=== PATIENT | female | born 1985 ===

== ENCOUNTER 2019-04-28 03:40 | Inpatient (IN) | payer OTHER ==
[2019-04-28] MEDS ORDERED: BUTORPHANOL TARTRATE 1 MG/ML VIAL IVPB ONE (04:00)
[2019-04-28] MEDS ORDERED: DEXTROSE 5%-LACTATED RINGERS 1,000 ML IV SCH (04:00)
[2019-04-28] MEDS ORDERED: PROMETHAZINE HCL 25 MG/1 ML VIAL IVPB ONE (04:00)
[2019-04-28] MEDS ORDERED: AMPICILLIN SODIUM 2 GM VIAL ONE (04:23)
[2019-04-28] MEDS ORDERED: AMPICILLIN - 2 GM in SODIUM CHLORIDE 100 ML IVPB ONE (04:30)
[2019-04-28 04:40] LABS: BASO % 0.1 % (0-2.0); EOS % 0.9 % (0-4.5); HEMATOCRIT 38.5 % (32.4-45.2); HEMOGLOBIN 12.8 GM/dL (10.7-15.3); LYMPH % 21.9 % (8-40); MCH 29.4 pg (25.7-33.7); MCHC 33.1 g/dl (32.0-36.0); MEAN PLT VOLUME 9.3 fl (7.5-11.1); MONO % 8.4 % (3.8-10.2); NEUT % 68.7 % (42.8-82.8); PLATELET COUNT 171 K/MM3 (134-434); RBC 4.33 M/mm3 (3.60-5.2); WHITE BLOOD COUNT 9.9 K/mm3 (4.0-10.0)
[2019-04-28 04:46] LABS: INR 0.89 (0.83-1.09); PROTHROMBIN TIME (PATIENT) 10.5 SEC (9.7-13.0)
[2019-04-28 04:56] LABS: BLOOD UREA NITROGEN 12.6 mg/dL (7-18); CREATININE 0.6 mg/dL (0.55-1.3)
[2019-04-28 05:06] VITALS: BMI 30.7
--- NOTE | 2019-04-28 07:43 | HP ---
Past Medical History - Primary Care Physician PCP:: Theo Arnett - Admission Chief Complaint: 38 weeks, PROM History of Present Illness: 34 yo f g [id number] 38 weeks c/o ROM since 330 am today , no pain, no bleeding, no fever. cx closed , vx -3 mr, clear fluid, nitrazine positive, FHR cat 1, no contraction History Source: Patient Limitations to Obtaining History: No Limitations - Past Medical History ...: 1 ...Para: 0 ...LMP: 08/01/18 ... Weeks Gestation by Dates: 38.4 ...EDC by Dates: 05/08/19 ...EDC by Sono: 05/08/19 - Past Surgical History Hx Myomectomy: No Hx Transabdominal Cerclage: No - Smoking History Smoking history: Never smoked Have you smoked in the past 12 months: No - Alcohol/Substance Use Hx Alcohol Use: No - Social History Usual Living Arrangement: Yes: With Spouse History of Recent Travel: No Home Medications - Allergies Allergies/Adverse Reactions: Allergies Allergy/AdvReac Type Severity Reaction Status Date / Time colloidal oatmeal Allergy Unknown Verified 04/28/19 04:26 [From Aveeno] dimethicone [From Aveeno] Allergy Unknown Verified 04/28/19 04:26 menthol [From Aveeno] Allergy Unknown Verified 04/28/19 04:26 soap [From Aveeno] Allergy Unknown Verified 04/28/19 04:26 aveno oatmeal lotion Allergy Mild Uncoded 04/28/19 04:26 - Home Medications Home Medications: Ambulatory Orders Pnv No.95/Ferrous Fum/Folic AC [ Vitamin Tablet] 1 tab PO DAILY Review of Systems - Review of Systems Constitutional: reports: No Symptoms Eyes: reports: No Symptoms HENT: reports: No Symptoms Neck: reports: No Symptoms Cardiovascular: reports: No Symptoms Respiratory: reports: No Symptoms Gastrointestinal: reports: No Symptoms Genitourinary: reports: No Symptoms Breasts: reports: No Symptoms Reported Musculoskeletal: reports: No Symptoms Integumentary: reports: No Symptoms Neurological: reports: No Symptoms Endocrine: reports: No Symptoms Hematology/Lymphatic: reports: No Symptoms Psychiatric: reports: No Symptoms Physical Exam - Maternity Vital Signs: Vital Signs Temperature 97.9 F 04/28/19 07:00 Pulse Rate 89 04/28/19 07:00 Respiratory Rate 20 04/28/19 07:00 Blood Pressure 118/76 04/28/19 07:00 O2 Sat by Pulse Oximetry (%) Constitutional: Yes: Well Nourished, No Distress, Calm Eyes: Yes: WNL, Conjunctiva Clear, EOM Intact HENT: Yes: WNL, Atraumatic, Normocephalic Neck: Yes: WNL, Supple, Trachea Midline Cardiovascular: Yes: WNL, Regular Rate and Rhythm Breast(s): Yes: WNL - Abdominal Exam/OB Fundal Height: 40 Number of Fetuses: Single Presentation: Vertex Contractions: No Intensity: Unaware Monitor Mode: External Heart Rate Location: [facility] Category: I Accelerations: Non-Uniform Decelerations: None - Vaginal Exam/OB Vaginal Bleediing: No Speculum Exam: No Dilatation (cm): closed Effacement (%): o Amniotic Membrane Status: Ruptured Nitrazine Test: Positive Amniotic Fluid: Yes: Clear Presentation: Vertex/Position Station: -3 - Physical Exam Musculoskeletal: Yes: WNL Extremities: Yes: WNL Edema: Yes Edema: LLE: 1+, RLE: 1+ Integumentary: Yes: WNL ...Motor Strength: WNL Psychiatric: Yes: WNL - Labs Lab Results: CBC, BMP 04/28/19 04:20 04/28/19 04:20 Hemorrhage Risk Assessment - Risk Factors Medium Risk Factors: Yes: None High Risk Factors: Yes: None Risk Score: 1 Risk Level: Medium Risk Problem List - Problems (1) with 38 completed weeks gestation Code(s): Z3A.38 - 38 WEEKS GESTATION OF (2) PROM (premature rupture of membranes) Code(s): O42.90 - FARHAN ROM, 7TH0 BETW RUPT & ONST LABR, UNSP WEEKS OF GEST Qualifiers: PROM gestational age: -third trimester (3) GBS (group B Streptococcus carrier), +RV culture, currently Code(s): O99.820 - STREPTOCOCCUS B CARRIER STATE COMPLICATING Assessment/Plan admit FHM GBS prophylaxes induction 0f labor discussed cervidil risks discussed advised cervidil induction
[2019-04-28] MEDS ORDERED: AMPICILLIN SODIUM 1 GM VIAL ONE ×4 (07:56→21:26)
[2019-04-28] MEDS: AMPICILLIN - 1 GM in SODIUM CHLORIDE 100 ML IVPB SCH ×4 (08:18→21:00)
[2019-04-28 08:45] LABS: POC NITRAZINE POS
[2019-04-28] MEDS ORDERED: DINOPROSTONE 10 MG VAGINAL SUPPOSITORY VG ONE (09:30)
[2019-04-28] MEDS ORDERED: FENTANYL/BUPIVACAINE/NS/PF - PCEA - 50 ML DISP.SYRIN EP ONE ×3 (13:55→23:13)
--- NOTE | 2019-04-28 14:14 | PN ---
Progress Note (short form) - Note Progress Note: cx 2 cm 70 vx -3 mr, fhr cat 1, regular contraction, uncomfortable, wants epidural Problem List - Problems (1) with 38 completed weeks gestation Code(s): Z3A.38 - 38 WEEKS GESTATION OF (2) PROM (premature rupture of membranes) Code(s): O42.90 - FARHAN ROM, 7TH0 BETW RUPT & ONST LABR, UNSP WEEKS OF GEST Qualifiers: PROM gestational age: -third trimester (3) GBS (group B Streptococcus carrier), +RV culture, currently Code(s): O99.820 - STREPTOCOCCUS B CARRIER STATE COMPLICATING
[2019-04-28] MEDS ORDERED: ELECTROLYTE-148 SOLN 1,000 ML IV SCH (14:30)
[2019-04-28] MEDS ORDERED: SODIUM CHLORIDE 100 ML IVPB ONE (15:15)
[2019-04-28] MEDS ORDERED: NALOXONE HCL 0.4 MG/ML VIAL IVPUSH PRN (15:39)
[2019-04-28] MEDS ORDERED: FENTANYL/BUPIVACAINE/NS/PF - PCEA - 50 ML DISP.SYRIN EP SCH ×2 (15:45→15:47)
[2019-04-28] MEDS ORDERED: OXYTOCIN 30 UNITS in 0.9% NS 30 UNIT/500 ML INFUS.BAG IVPB SCH (16:45)
[2019-04-28] MEDS ORDERED: OXYTOCIN 30 UNITS in 0.9% NS 30 UNIT/500 ML INFUS.BAG IVPB ONE (16:58)
[2019-04-28] MEDS ORDERED: BUPIVACAINE HCL/PF 2.5 MG/ML - 30 ML VIAL IJ ONE (21:24)
--- NOTE | 2019-04-28 21:46 | PN ---
Progress Note (short form) - Note Progress Note: cx 7 cm , 100 vx-1 mr, fhr cat 1, regular contraction Problem List - Problems (1) with 38 completed weeks gestation Code(s): Z3A.38 - 38 WEEKS GESTATION OF (2) PROM (premature rupture of membranes) Code(s): O42.90 - FARHAN ROM, 7TH0 BETW RUPT & ONST LABR, UNSP WEEKS OF GEST Qualifiers: PROM gestational age: -third trimester (3) GBS (group B Streptococcus carrier), +RV culture, currently Code(s): O99.820 - STREPTOCOCCUS B CARRIER STATE COMPLICATING
[2019-04-29] MEDS ORDERED: LIDOCAINE HCL 2% (20ML MULTI-DOSE VIAL) NR ONE (00:29)
[2019-04-29] MEDS ORDERED: AMPICILLIN SODIUM 1 GM VIAL ONE (00:29)
[2019-04-29] MEDS: AMPICILLIN - 1 GM in SODIUM CHLORIDE 100 ML IVPB SCH ×2 (00:30→06:35)
[2019-04-29] MEDS ORDERED: LIDOCAINE HCL/PF 2% SDV 5ML VIAL ONE (00:31)
[2019-04-29] MEDS ORDERED: PHENYLEPHRINE HCL 10 MG/1 ML SINGLE DOSE VIAL ONE (00:32)
[2019-04-29] MEDS ORDERED: EPINEPHrine/PF 1 MG/1 ML (1:1,000) AMPULE ONE (00:32)
[2019-04-29] MEDS ORDERED: ceFAZolin SODIUM 1 GM VIAL ONE (00:32)
[2019-04-29] MEDS ORDERED: morphine SULFATE/PF 0.5 MG/ML (2cc Syringe - QUVA) ONE (00:33)
[2019-04-29] MEDS ORDERED: SODIUM BICARBONATE 8.4% - 50 ML ONE (00:39)
[2019-04-29] MEDS ORDERED: SODIUM CHLORIDE 0.9% P/F 10 ML VIAL IJ ONE (00:39)
[2019-04-29] MEDS ORDERED: OXYTOCIN 20 UNITS in 0.9% NS 40 UNIT/2,000 ML INFUS.BAG IV ONE (01:23)
[2019-04-29] MEDS ORDERED: OXYTOCIN 10 UNITS/ML VIAL ONE (02:05)
[2019-04-29] MEDS ORDERED: morphine SULFATE/PF 0.5 MG/ML (2cc Syringe - QUVA) EP ONE (02:05)
[2019-04-29] MEDS ORDERED: METHYLERGONOVINE MALEATE 0.2 MG/1 ML AMP NR ONE (02:10)
[2019-04-29] MEDS ORDERED: CARBOPROST TROMETHAMINE 250 MCG/ML AMPUL IM ONE (02:25)
--- NOTE | 2019-04-29 02:51 | PN ---
Progress Note (short form) - Note Progress Note: 2 am cx 7 , thick ant. lip,vx -2 FHR cat 1, advised c/s for failure to dilate , risks discussed Problem List - Problems (1) with 38 completed weeks gestation Code(s): Z3A.38 - 38 WEEKS GESTATION OF (2) PROM (premature rupture of membranes) Code(s): O42.90 - FARHAN ROM, 7TH0 BETW RUPT & ONST LABR, UNSP WEEKS OF GEST Qualifiers: PROM gestational age: -third trimester (3) GBS (group B Streptococcus carrier), +RV culture, currently Code(s): O99.820 - STREPTOCOCCUS B CARRIER STATE COMPLICATING
[2019-04-29] MEDS ORDERED: diphenhydrAMINE HCL 25 MG CAPSULE (FP) PO PRN (02:52)
[2019-04-29] MEDS ORDERED: WITCH HAZEL 50% (TUCKS) 40 PAD/JAR PAD TP PRN (02:52)
[2019-04-29] MEDS ORDERED: BENZOCAINE 28 GM HEMORRHOIDAL OINTMENT PR PRN (02:52)
[2019-04-29] MEDS ORDERED: METHYLERGONOVINE MALEATE 0.2 MG/1 ML AMP IM PRN (02:52)
[2019-04-29] MEDS ORDERED: BENZOCAINE 20% 57 GM BOTTLE TP PRN (02:52)
[2019-04-29] MEDS ORDERED: oxyCODONE HCL 5 MG TABLET PO PRN ×2 (02:52)
[2019-04-29] MEDS ORDERED: IBUPROFEN 800 MG/8 ML IJ IVPB PRN (02:52)
--- NOTE | 2019-04-29 02:58 | OP ---
Operative Note - Note: Operative Date: 04/29/19 Pre-Operative Diagnosis: 38 weeks, PROM, cervidil induction, failure to dilate Operation: primary LST c/s Findings: live baby girl op , 02/20 Post-Operative Diagnosis: Same as Pre-op Surgeon: Theo Arnett Material Preparation Worker: Delgado Cardona Anesthesia: Epidural Estimated Blood Loss (mls): 700 Drains & Tubes with Location: daniel Drains, Volume Out (mls): 100 Blood Volume Replaced (mls): 0 Fluid Volume Replaced (mls): 1,000 Operative Report Dictated: Yes
[2019-04-29] MEDS ORDERED: DEXTROSE 5%-LACTATED RINGERS 1,000 ML IV SCH (03:00)
[2019-04-29] MEDS ORDERED: ONDANSETRON 4 MG/2 ML VIAL IVPUSH PRN (03:03)
[2019-04-29] MEDS ORDERED: ACETAMINOPHEN 1000 MG/100 ML VIAL (NON FORMULARY) IVPB ONE (03:05)
[2019-04-29] MEDS ORDERED: LACTATED RINGERS SOLUTION 1,000 ML IV SCH (03:15)
[2019-04-29] MEDS: OXYTOCIN 20 UNITS in 0.9% NS 20 UNIT/1,000 ML INFUS.BAG IV SCH ×2 (04:00→11:15)
[2019-04-29] MEDS: CEFAZOLIN 1 GM/D5W 1 GM/50 ML BAG IVPB SCH ×2 (09:04→17:06)
--- NOTE | 2019-04-29 10:19 | OP ---
DATE OF OPERATION: 04/29/2019 PREOPERATIVE DIAGNOSES: at 38 weeks, premature rupture of membrane, Cervidil induction, failure to dilate. POSTOPERATIVE DIAGNOSES: at 38 weeks, premature rupture of membrane, Cervidil induction, failure to dilate. PROCEDURE: Primary low segment transverse section. SURGEON: Theo Arnett MD TECHNICAL SPECIALIST CYTOGENETICS: ANGEL Prabhakar ANESTHESIA: Epidural. ANESTHESIOLOGIST: Davie Avilez MD ESTIMATED BLOOD LOSS: 700 mL. FINDING: A live baby girl, 9, 9, occiput posterior position. OPERATION: Patient was taken to the operating room. Under adequate epidural anesthesia abdomen and perineum were prepped and draped. Pfannenstiel abdominal skin incision was made. Abdominal wall was cut layer by layer until peritoneum was exposed and incised. Upon entering the abdominal cavity low uterine segment was identified and uterovesical fold of peritoneum established. Bladder was pushed down. Then with the lower blade of the Yonatan retractor in the pelvis a low transverse incision was made. Amniotic sac was entered. Clear fluid. Head delivered from occiput posterior position. Nasopharynx was suctioned and live baby girl was delivered without any difficulty. 9, 9. Placenta was delivered manually. Uterine cavity was cleared of all remaining tissue. Uterine incision was closed in 2 layers, 1st layer with Biosyn continuous suture, the 2nd layer with 0 Biosyn imbricating the 1st layer. Bladder flap was closed with 0 Biosyn continuous suture. There was uterine atony noted so therefore Methergine and Hemabate were given and uterus responded and contracted. Then pelvic cavity was several times irrigated. No active bleeding was seen. The lap, sponge and instrument counts were correct. Then peritoneum was closed with 0 Biosyn continuous suture. Muscles were brought together with interrupted suture of 0 Biosyn. Fascia was closed with 0 Biosyn continuous suture, subcutaneous fat interrupted suture of 0 Biosyn and the skin was closed with 3-0 Vicryl subcuticular continuous suture. Patient tolerated procedure well, left the OR in good condition. Prasanna [id number]
[2019-04-30] MEDS ORDERED: BISACODYL 10 MG SUPP.RECT PR PRN (02:52)
[2019-04-30] MEDS: ACETAMINOPHEN 325 MG TABLET (FP) PO PRN ×3 (03:52→21:37)
[2019-04-30] MEDS: SIMETHICONE 80 MG TAB.CHEW (FP) PO PRN ×3 (03:52→21:37)
[2019-04-30] MEDS: IBUPROFEN 600 MG TABLET (FP) PO PRN ×3 (03:53→21:38)
[2019-04-30 08:02] LABS: BASO % 0.3 % (0-2.0); EOS % 0.9 % (0-4.5); HEMATOCRIT 27.2 % (32.4-45.2); HEMOGLOBIN 9.1 GM/dL (10.7-15.3); LYMPH % 14.2 % (8-40); MCH 29.8 pg (25.7-33.7); MCHC 33.3 g/dl (32.0-36.0); MEAN CELL VOLUME 89.4 fl (80-96); MEAN PLT VOLUME 8.3 fl (7.5-11.1); MONO % 8.3 % (3.8-10.2); NEUT % 76.3 % (42.8-82.8); PLATELET COUNT 148 K/MM3 (134-434); RBC 3.05 M/mm3 (3.60-5.2); RDW 14.9 % (11.6-15.6); WHITE BLOOD COUNT 11.8 K/mm3 (4.0-10.0)
[2019-04-30] MEDS: ENOXAPARIN NA (PORCINE) 40 MG/0.4 ML DISP.SYRIN SQ SCH (09:18)
--- NOTE | 2019-04-30 14:27 | PN ---
Progress Note (short form) - Note Progress Note: Anesthesia Post Op Note Pt s/p CSE for labor to primary c/section Pt awake alert sitting up in bed Pt denies h/a, n/v -- ambulating well, reasonable pain control Pt reports puritis which has subsided No urinary retention VSS no apparent anesthesia complications Marilyn Avilez.
[2019-04-30] MEDS: SENNOSIDES/DOCUSATE COMBO (SENNA PLUS) TABLET (UD) PO PRN (21:37)
--- NOTE | 2019-04-30 22:16 | PN ---
Progress Note (short form) - Note Progress Note: pod 1 s/p c/s doing well, passing gas, ambulating CBC, BMP 04/30/19 07:20 04/28/19 04:20 Last Vital Signs Temp Pulse Resp BP Pulse Ox 98.1 F 89 20 128/80 96 04/30/19 21:43 04/30/19 21:43 04/30/19 21:43 04/30/19 21:43 04/29/19 03:45 abdomen soft, no distension, no cva incison dry, clean no calf tenderness plan ambulate .advance diet pain management Problem List - Problems (1) with 38 completed weeks gestation Code(s): Z3A.38 - 38 WEEKS GESTATION OF (2) PROM (premature rupture of membranes) Code(s): O42.90 - FARHAN ROM, 7TH0 BETW RUPT & ONST LABR, UNSP WEEKS OF GEST Qualifiers: PROM gestational age: -third trimester (3) GBS (group B Streptococcus carrier), +RV culture, currently Code(s): O99.820 - STREPTOCOCCUS B CARRIER STATE COMPLICATING
--- NOTE | 2019-05-01 07:45 | PN ---
Progress Note (short form) - Note Progress Note: pod 2. s/p primary C/S . doing well, passing gas , ambulating, no excess vaginal bleeding CBC, BMP 04/30/19 07:20 04/28/19 04:20 Last Vital Signs Temp Pulse Resp BP Pulse Ox 98.1 F 89 20 128/80 96 04/30/19 21:43 04/30/19 21:43 04/30/19 21:43 04/30/19 21:43 04/29/19 03:45 abdomen soft, no distension, no cva BS are present incison dry, clean , healing well plan ambulate, cbc in am plan for d/c home in am Problem List - Problems (1) with 38 completed weeks gestation Code(s): Z3A.38 - 38 WEEKS GESTATION OF (2) PROM (premature rupture of membranes) Code(s): O42.90 - FARHAN ROM, 7TH0 BETW RUPT & ONST LABR, UNSP WEEKS OF GEST Qualifiers: PROM gestational age: -third trimester (3) GBS (group B Streptococcus carrier), +RV culture, currently Code(s): O99.820 - STREPTOCOCCUS B CARRIER STATE COMPLICATING
[2019-05-01] MEDS: ACETAMINOPHEN 325 MG TABLET (FP) PO PRN ×3 (09:34→23:00)
[2019-05-01] MEDS: IBUPROFEN 600 MG TABLET (FP) PO PRN ×3 (09:34→22:59)
[2019-05-01] MEDS: SIMETHICONE 80 MG TAB.CHEW (FP) PO PRN ×3 (09:34→22:59)
[2019-05-01] MEDS: ENOXAPARIN NA (PORCINE) 40 MG/0.4 ML DISP.SYRIN SQ SCH (09:35)
[2019-05-01] MEDS: SENNOSIDES/DOCUSATE COMBO (SENNA PLUS) TABLET (UD) PO PRN (23:00)
[2019-05-02] MEDS: IBUPROFEN 600 MG TABLET (FP) PO PRN ×3 (08:03→21:51)
[2019-05-02] MEDS: ACETAMINOPHEN 325 MG TABLET (FP) PO PRN ×3 (08:04→21:48)
[2019-05-02] MEDS: SIMETHICONE 80 MG TAB.CHEW (FP) PO PRN ×2 (08:04→15:35)
[2019-05-02 08:25] LABS: BASO % 0.2 % (0-2.0); EOS % 1.7 % (0-4.5); HEMATOCRIT 25.1 % (32.4-45.2); HEMOGLOBIN 8.4 GM/dL (10.7-15.3); LYMPH % 23.2 % (8-40); MCH 29.8 pg (25.7-33.7); MCHC 33.5 g/dl (32.0-36.0); MEAN CELL VOLUME 88.8 fl (80-96); MEAN PLT VOLUME 8.2 fl (7.5-11.1); MONO % 7.3 % (3.8-10.2); NEUT % 67.6 % (42.8-82.8); PLATELET COUNT 202 K/MM3 (134-434); RBC 2.83 M/mm3 (3.60-5.2); RDW 15.1 % (11.6-15.6); WHITE BLOOD COUNT 7.7 K/mm3 (4.0-10.0)
[2019-05-02] MEDS: ENOXAPARIN NA (PORCINE) 40 MG/0.4 ML DISP.SYRIN SQ SCH (09:39)
--- NOTE | 2019-05-02 10:17 | PN ---
Post Progress Note - Subjective Subjective: Patient without acute complaints. Reports tolerating oral intake without nausea or vomiting. Ambulating without dizziness. Denies fevers or chills. Pain well controlled with oral pain medication. without difficulty. Post Day: 3 Type of Delivery: Primary C/S Vital Signs: Vital Signs Temperature 98.1 F 05/02/19 09:00 Pulse Rate 87 05/02/19 09:00 Respiratory Rate 18 05/02/19 09:00 Blood Pressure 126/86 05/02/19 09:00 O2 Sat by Pulse Oximetry (%) 96 04/29/19 03:45 Breast Exam: Yes: Soft Uterus: Yes: Fundus Firm Incision: Yes: Sutures intact Abdomen/GI: Yes: Abdomen soft, Passing flatus Lochia: Yes: Rubra Lochia, amount: Small Extremities: Yes: Calves non-tender Perineum: Yes: Intact Activity: Ambulating - Labs Labs: CBC WBC 7.7 K/mm3 (4.0-10.0) 05/02/19 07:30 RBC 2.83 M/mm3 (3.60-5.2) L 05/02/19 07:30 Hgb 8.4 GM/dL (10.7-15.3) L 05/02/19 07:30 Hct 25.1 % (32.4-45.2) L 05/02/19 07:30 MCV 88.8 fl (80-96) 05/02/19 07:30 MCH 29.8 pg (25.7-33.7) 05/02/19 07:30 MCHC 33.5 g/dl (32.0-36.0) 05/02/19 07:30 RDW 15.1 % (11.6-15.6) 05/02/19 07:30 Plt Count 202 K/MM3 (134-434) D 05/02/19 07:30 MPV 8.2 fl (7.5-11.1) 05/02/19 07:30 Absolute Neuts (auto) 5.2 K/mm3 (1.5-8.0) 05/02/19 07:30 Neutrophils % 67.6 % (42.8-82.8) 05/02/19 07:30 Lymphocytes % 23.2 % (8-40) D 05/02/19 07:30 Monocytes % 7.3 % (3.8-10.2) 05/02/19 07:30 Eosinophils % 1.7 % (0-4.5) D 05/02/19 07:30 Basophils % 0.2 % (0-2.0) 05/02/19 07:30 Nucleated RBC % 0 % (0-0) 05/02/19 07:30 Assessment/Plan 34yo P1 s/p Primary LST c/section VSS, Afebrile Doing well Plan d/c in am 05/03/19 NPV x 6 wks RTO 1 wks
[2019-05-02] MEDS: FERROUS SO4 325 MG TABLET (FP) PO SCH (21:46)
--- NOTE | 2019-05-03 08:00 | DS ---
Physical Exam-GAS STATION MANAGER Vital Signs: Vital Signs Temperature 97.6 F 05/03/19 02:01 Pulse Rate 86 05/03/19 02:01 Respiratory Rate 18 05/03/19 02:01 Blood Pressure 125/79 05/03/19 02:01 O2 Sat by Pulse Oximetry (%) 96 04/29/19 03:45 Constitutional: Yes: Well Nourished, No Distress, Calm Eyes: Yes: WNL, Conjunctiva Clear, EOM Intact HENT: Yes: WNL, Atraumatic, Normocephalic Neck: Yes: WNL, Supple, Trachea Midline Cardiovascular: Yes: WNL, Regular Rate and Rhythm Respiratory: Yes: WNL, Regular, CTA Bilaterally Gastrointestinal: Yes: WNL ...Rectal Exam: Yes: WNL Renal/: Yes: WNL ....Post : Yes: Uterus firm, Uterus non-tender, Slight lochia rubra Breast(s): Yes: WNL Musculoskeletal: Yes: WNL Extremities: Yes: WNL Edema: Yes Edema: LLE: Trace, RLE: Trace Integumentary: Yes: WNL Wound/Incision: Yes: Clean/Dry, Well Approximated, Sutures Intact Neurological: Yes: WNL, Alert, Oriented ...Motor Strength: WNL Psychiatric: Yes: WNL, Alert, Oriented Labs: CBC, BMP 05/02/19 07:30 04/28/19 04:20 Delivery - Delivery Section: Low Flap Transverse Type of Anesthesia: Epidural Episiotomy/Laceration: None EBL (cc): 700 Delivery, Single - Stages of Labor Date 1st Stage Initiatied: 04/28/19 Time 1st Stage Initiated: 13:00 Date of Delivery: 04/29/19 Time of Delivery: 02:03 Time Placenta Delivered: 02:03 Placenta: Yes: Spontaneous - Condition of Road Machine Runner/Crop Roller Present: Yes Name: Shruthi Rodriguez Gender: Female Weight: 7 lb 1 oz Position: OP Total Hours ROM (Hrs/Mins): 21hrs.28mins. - 1 Minute Total Score: 9 5 Minutes Total Score: 9 - Feeding Plan Initial Plan: Exclusive throughout hospitalization Discharge Summary Problems reviewed: Yes Reason For Visit: ADMIT LABOR Current Active Problems GBS (group B Streptococcus carrier), +RV culture, currently (Acute) PROM (premature rupture of membranes) (Acute) with 38 completed weeks gestation (Acute) Procedures: Principal: primary LST c/s Other Procedures: iron, vit Hospital Course: no complication, anemia Health Concerns: anemia Plan of Treatment: iron, vit Condition: Good - Instructions Diet, Activity, Other Instructions: regular diet, no intercourse , follow up office 1 week, if fever , pain, heavy vaginal bleeding call md Referrals: Theo Arnett MD [Staff Physician] - Disposition: HOME - Home Medications Comprehensive Discharge Medication List: Ambulatory Orders Pnv No.95/Ferrous Fum/Folic AC [ Vitamin Tablet] 1 tab PO DAILY Ibuprofen [Motrin -] 600 mg PO TID #90 tablet 05/03/19
[2019-05-03] MEDS: ENOXAPARIN NA (PORCINE) 40 MG/0.4 ML DISP.SYRIN SQ SCH (10:02)
[2019-05-03] MEDS: FERROUS SO4 325 MG TABLET (FP) PO SCH (10:03)
[2019-05-03] MEDS: ACETAMINOPHEN 325 MG TABLET (FP) PO PRN (10:09)
[2019-05-03] MEDS: IBUPROFEN 600 MG TABLET (FP) PO PRN (10:09)
[2019-05-03 10:58] VITALS: BP 119/76; PULSE 77; TEMP 98.3
--- NOTE | 2019-05-03 16:26 | PATH ---
Surgical Pathology Report Patient Name: [facility] GALLO [facility]. Rec. #: [id number] /Age/Gender: 1985 (Age: 34) / F Account: [id number] Location: [facility] OBS/MANAGER SAFE Taken: 04/29/2019 Received: 05/01/2019 Reported: 05/03/2019 Physicians: Theo Arnett M.D. Specimen(s) Received PLACENTA Clinical History , 38.4 weeks gestation Failure to progress Final Diagnosis PLACENTA, SECTION: 553 G THIRD TRIMESTER PLACENTA WITH TRIVASCULAR UMBILICAL CORD AND UNREMARKABLE PLACENTAL MEMBRANES. Electronically Signed Eliza Chapa M.D. Gross Description The specimen is received fresh labeled placenta and is a 553 gram, 19.5 x 15.5 x 2.8 cm. placenta with attached membranes and umbilical cord. The attached membranes are castano, translucent with focal opacities and insert marginally. The umbilical cord measures 12.5 cm. in length and averages 1 cm. in diameter. The cord inserts eccentrically, 6 cm. to the nearest margin. No true knots or strictures are identified. Cut surface of the umbilical cord reveals 3 vessels. The surface is hyde-blue with minimal fibrin deposition and appropriate caliber vessels. The maternal surface is red-brown with focal defects. Sectioning reveals red-brown, spongy parenchyma. No lesions are identified. Riveter sections are submitted in three cassettes as follows: 1- membrane rolls and umbilical cord; 2-3- full thickness sections of placenta. 05/01/2019 saudi05/01/2019
== END 2019-05-03 14:10 | disposition home or self-care (01) | DRG 788 ==
LOC: JLDR 03:40 → J3W 04-29 05:03
PROVIDERS: ADMIT Obstetrics & Gynecology; ATTEND Obstetrics & Gynecology
PROC: 3E0P7VZ Introduction of Hormone into Female Reproductive, Via Natural or Artificial Opening (ICD-10-PCS; 2019-04-28)
PROC: 10D00Z1 Extraction of Products of Conception, Low, Open Approach (ICD-10-PCS; principal; 2019-04-29)
DX: O62.0 Primary inadequate contractions (principal); O42.92 Full-term premature rupture of membranes, unspecified as to length of time between rupture and onset of labor; Z3A.38 38 weeks gestation of pregnancy; Z22.330 Carrier of Group B streptococcus; Z37.0 Single live birth
CPT/HCPCS: 36415; 36600; 80048; 82803; 83986-QW; 85025; 85610; 85730; 86593; 86850; 86900; 86901; 88307-TC

== ENCOUNTER 2023-08-01 02:45 | Inpatient (IN) | payer BC ==
[2023-08-01] MEDS ORDERED: BETAMET ACET/BETAMET NA PH 30 MG/5 ML VIAL ONE (04:22)
[2023-08-01] MEDS: BETAMET ACET/BETAMET NA PH 30 MG/5 ML VIAL IM SCH (04:30)
[2023-08-01] MEDS: ELECTROLYTE-148 SOLN 1,000 ML IV SCH ×5 (05:49→14:12)
[2023-08-01] MEDS: NIFEdipine 10 MG CAPSULE (FP) PO ONE (06:15)
[2023-08-01] MEDS ORDERED: NIFEdipine 10 MG CAPSULE (FP) ONE (06:17)
[2023-08-01] MEDS: ELECTROLYTE-148 SOLN 500 ML IV ONE (06:57)
[2023-08-01 08:29] VITALS: BMI 32.7
[2023-08-01] MEDS: NIFEdipine 10 MG CAPSULE (FP) PO SCH (09:21)
[2023-08-01 09:23] LABS: HEMATOCRIT 36.9 % (32.4-45.2); MCH 28.1 pg (25.7-33.7); MCHC 32.5 g/dl (32.0-36.0); MEAN CELL VOLUME 86.5 fl (80-96); MEAN PLT VOLUME 8.1 fl (7.5-11.1); PLATELET COUNT 196 10^3/uL (134-434); RBC 4.26 M/mm3 (3.60-5.2); RDW 15.1 % (11.6-15.6); WHITE BLOOD COUNT 13.8 K/mm3 (4.0-10.0)
[2023-08-01 09:31] LABS: INR 0.97 (0.83-1.09); PROTHROMBIN TIME (PATIENT) 11.2 SEC (9.7-13.0)
[2023-08-01 09:33] LABS: ACTIVATED PTT 28.9 SECONDS (25.2-36.5)
[2023-08-01 09:40] LABS: CALCIUM 8.7 mg/dL (8.5-10.1)
[2023-08-01 09:41] LABS: BLOOD UREA NITROGEN 5.6 mg/dL (7-18)
[2023-08-01 09:44] LABS: CREATININE 0.4 mg/dL (0.55-1.3)
[2023-08-01 12:18] LABS: ANISOCYTOSIS 0; HELMET CELLS 0; HOWELL-JOLLY BODIES 0; MACROCYTOSIS 0; OVALOCYTE 0; ROULEAU 0; SICKELED CELLS 0; TARGET CELLS 0; TEAR DROP CELLS 0; TOXIC GRANULATION 0
[2023-08-01] MEDS: CITRIC ACID/SODIUM CITRATE 30 ML UNIT-DOSE CUP PO ONE (12:18)
[2023-08-01] MEDS ORDERED: IBUPROFEN 600 MG TABLET (FP) PO PRN (12:32)
[2023-08-01] MEDS ORDERED: ACETAMINOPHEN 325 MG TABLET (FP) PO PRN (12:32)
[2023-08-01] MEDS ORDERED: OXYTOCIN 30 UNITS in 0.9% NS 30 UNIT/500 ML INFUS.BAG IVPB ONE (12:42)
[2023-08-01] MEDS ORDERED: ONDANSETRON 4 MG/2 ML VIAL ONE ×2 (12:44→13:13)
[2023-08-01] MEDS ORDERED: morphine SULFATE/PF 1 MG/2 ML (2cc Syringe - QUVA) ONE (12:44)
[2023-08-01] MEDS ORDERED: DEXAMETHASONE SOD PHOSPHATE 4 MG/1 ML VIAL ONE (12:44)
[2023-08-01] MEDS ORDERED: ceFAZolin SODIUM 1 GM VIAL ONE (12:44)
[2023-08-01] MEDS ORDERED: FENTANYL CITRATE/PF 50 MCG/ML VIAL ONE (12:44)
[2023-08-01] MEDS ORDERED: ELECTROLYTE-148 SOLN 1,000 ML IV ONE (12:45)
[2023-08-01] MEDS ORDERED: OXYTOCIN 20 UNITS in 0.9% NS 20 UNIT/1,000 ML INFUS.BAG IV ONE (14:36)
[2023-08-01] MEDS ORDERED: WITCH HAZEL 50% (TUCKS) 40 PAD/JAR PAD TP PRN (14:38)
[2023-08-01] MEDS ORDERED: BENZOCAINE 28 GM HEMORRHOIDAL OINTMENT TP PRN (14:38)
[2023-08-01] MEDS ORDERED: BENZOCAINE 20% 57 GM BOTTLE TP PRN (14:38)
[2023-08-01] MEDS ORDERED: IBUPROFEN 800 MG/8 ML IJ IVPB PRN (14:38)
[2023-08-01] MEDS ORDERED: METHYLERGONOVINE MALEATE 0.2 MG/1 ML AMP IM PRN (14:38)
[2023-08-01] MEDS: OXYTOCIN 20 UNITS in 0.9% NS 20 UNIT/1,000 ML INFUS.BAG IV SCH (14:50)
[2023-08-01 15:26] LABS: CORD BASE EXCESS -3.6 mmol/L (0-2); CORD BASE EXCESS -3.7 mmol/L (0-2); CORD HCO3 22.4 mmHg (20-29); CORD HCO3 23.1 mmHg (20-29); CORD PCO2 48.2 mmHg (30-78); CORD pH 7.299 (7.14-7.44); CORD pH 7.325 (7.14-7.44)
[2023-08-01] MEDS: ONDANSETRON 4 MG/2 ML VIAL IVPUSH PRN (18:49)
[2023-08-02] MEDS ORDERED: oxyCODONE HCL 5 MG TABLET PO PRN (02:38)
[2023-08-02 08:37] LABS: EOS % 0.1 % (0-4.5); HEMATOCRIT 31.5 % (32.4-45.2); HEMOGLOBIN 10.6 GM/dL (10.7-15.3); LYMPH % 11.3 % (8-40); MCH 28.8 pg (25.7-33.7); MCHC 33.7 g/dl (32.0-36.0); MEAN CELL VOLUME 85.5 fl (80-96); MEAN PLT VOLUME 8.3 fl (7.5-11.1); MONO % 8.2 % (3.8-10.2); NEUT % 80.4 % (42.8-82.8); PLATELET COUNT 203 10^3/uL (134-434); RBC 3.68 M/mm3 (3.60-5.2); RDW 14.9 % (11.6-15.6)
[2023-08-02] MEDS: ACETAMINOPHEN 325 MG TABLET (FP) PO PRN (12:37)
[2023-08-02] MEDS: PRENATAL VITAMINS W/ FOLIC ACID TABLET (FP) PO SCH (12:37)
[2023-08-02] MEDS: SIMETHICONE 80 MG TAB.CHEW (FP) PO PRN (12:37)
[2023-08-02] MEDS ORDERED: BISACODYL 10 MG SUPP.RECT RC PRN (14:38)
[2023-08-02] MEDS: IBUPROFEN 600 MG TABLET (FP) PO PRN (18:09)
[2023-08-02] MEDS: SENNOSIDES/DOCUSATE COMBO (SENNA PLUS) TABLET (UD) PO PRN (20:40)
[2023-08-03 10:39] VITALS: RESP 18
[2023-08-03] MEDS: oxyCODONE HCL 5 MG TABLET PO PRN (22:41)
[2023-08-04 08:25] LABS: BASO % 0.3 % (0-2.0); EOS % 1.5 % (0-4.5); HEMATOCRIT 31.5 % (32.4-45.2); HEMOGLOBIN 10.7 GM/dL (10.7-15.3); LYMPH % 18.7 % (8-40); MCH 29.3 pg (25.7-33.7); MEAN CELL VOLUME 86.2 fl (80-96); MEAN PLT VOLUME 8.2 fl (7.5-11.1); MONO % 9.9 % (3.8-10.2); NEUT % 69.6 % (42.8-82.8); PLATELET COUNT 225 10^3/uL (134-434); RBC 3.66 M/mm3 (3.60-5.2); RDW 15.3 % (11.6-15.6); WHITE BLOOD COUNT 10.8 K/mm3 (4.0-10.0)
[2023-08-04] MEDS: ENOXAPARIN NA (PORCINE) 40 MG/0.4 ML DISP.SYRIN SQ SCH (10:48)
[2023-08-05 11:22] VITALS: BP 104/66; PULSE 95; TEMP 97.9
== END 2023-08-05 16:45 | disposition home or self-care (01) | DRG 786 ==
LOC: JDEL 02:45 → JERBED 07:58 → JLDR 08:15 → J3W 17:03
PROVIDERS: ADMIT Obstetrics & Gynecology; ATTEND Obstetrics & Gynecology
PROC: 10D00Z1 Extraction of Products of Conception, Low, Open Approach (ICD-10-PCS; principal; 2023-08-01)
DX: O34.211 Maternal care for low transverse scar from previous cesarean delivery (principal); O60.14X0 Preterm labor third trimester with preterm delivery third trimester, not applicable or unspecified; O66.40 Failed trial of labor, unspecified; O90.81 Anemia of the puerperium; D64.9 Anemia, unspecified; Z3A.34 34 weeks gestation of pregnancy; Z37.0 Single live birth
CPT/HCPCS: 36415; 36600; 80048; 82803; 85025; 85610; 85730; 86850; 86900; 86901; 88307-TC; 96372